=== PATIENT | female | born 1995 | race Caucasian/White ===

== ENCOUNTER 2023-08-10 16:04 | Emergency (ER) | payer OTHER ==
[~2023-08-10] VITALS: Ht 152.4 cm; Wt 46.7 kg
[2023-08-10 16:15] VITALS: BP_SYST 115; PULSE 110; RESP 17; TEMP 97.9; O2SAT 97
[2023-08-10 16:51] LABS: BASOPHILS # (AUTO) 0.1 K/uL (0.0-0.2); BASOPHILS % (AUTO) 0.6 % (0.0-2.0); EOSINOPHILS % (AUTO) 0.3 % (0.0-4.0); HEMOGLOBIN 14.5 g/dL (12.0-16.0); LYMPHOCYTES # (AUTO) 1.4 K/uL (1.0-5.5); LYMPHOCYTES % (AUTO) 14.9 % (20.5-51.5); MEAN CORPUSCULAR HEMOGLOBIN 33 pg (27-31); MEAN CORPUSCULAR HGB CONC 35 % (32-36); MEAN CORPUSCULAR VOLUME 94 fL (79.0-98.0); MONOCYTES # (AUTO) 0.5 K/uL (0.0-1.0); MONOCYTES % (AUTO) 5.5 % (1.7-9.3); NEUTROPHILS # (AUTO) 7.6 K/uL (1.8-7.7); NEUTROPHILS % (AUTO) 78.7 % (40.0-70.0); PLATELET COUNT (AUTO) 239 K/uL (130-430); RED BLOOD CELL COUNT(AUTO) 4.39 MIL/uL (4.2-6.2); RED CELL DISTRIBUTION WIDTH 13.8 % (9.0-15.0); WHITE BLOOD COUNT (AUTO) 9.6 K/uL (4.8-10.8)
[2023-08-10] MEDS: NACL 0.9% 1,000 ML IV ONE ×2 (17:02→18:19)
[2023-08-10] MEDS: ONDANSETRON HCL 4 MG/2 ML VIAL IVP ONE (17:03)
[2023-08-10 17:24] LABS: CALCIUM 9.3 mg/dL (8.4-11.0); CREATININE 0.64 mg/dL (0.55-1.30); POTASSIUM 3.9 mmol/L (3.5-5.1); TOTAL BILIRUBIN 0.3 mg/dL (0.0-1.0); TOTAL PROTEIN, SERUM 7.9 g/dL (6.4-8.3)
[2023-08-10 17:34] LABS: BILIRUBIN,DIRECT 0.1 mg/dL (0.0-0.3)
[2023-08-10] MEDS ORDERED: methylPREDNISolone SOD SUCC/PF 62.5 MG/ML VIAL IVP ONE (18:30)
[2023-08-10] MEDS: METOCLOPRAMIDE HCL 10 MG/2 ML VIAL IVP ONE (18:35)
[2023-08-10 19:15] VITALS: BP_SYST 115; PULSE 110; RESP 17; TEMP 97.9; O2SAT 97
== END 2023-08-10 19:07 | disposition home or self-care (01) ==
LOC: SED 16:04
DX: O21.0 Mild hyperemesis gravidarum (principal); Z3A.01 Less than 8 weeks gestation of pregnancy
CPT/HCPCS: 99284; 96374; 96361; 96375; 80076; 80048; 84702; 85025; 86901; 36415; J2765; J2405; J7030

== ENCOUNTER 2023-08-12 22:58 | Emergency (ER) | payer OTHER ==
[~2023-08-12] VITALS: Ht 152.4 cm; Wt 46.3 kg
[2023-08-12 23:10] VITALS: BP_SYST 121; PULSE 126; RESP 22; TEMP 98.8; O2SAT 95
[2023-08-13] MEDS: NACL 0.9% 1,000 ML IV ONE ×2 (00:04→01:47)
[2023-08-13 00:10] LABS: BASOPHILS % (AUTO) 0.4 % (0.0-2.0); EOSINOPHILS % (AUTO) 0.2 % (0.0-4.0); HEMATOCRIT 42.8 % (36-48); HEMOGLOBIN 14.6 g/dL (12.0-16.0); LYMPHOCYTES # (AUTO) 1.1 K/uL (1.0-5.5); LYMPHOCYTES % (AUTO) 10.8 % (20.5-51.5); MEAN CORPUSCULAR HEMOGLOBIN 32 pg (27-31); MEAN CORPUSCULAR HGB CONC 34 % (32-36); MEAN CORPUSCULAR VOLUME 94 fL (79.0-98.0); MONOCYTES # (AUTO) 0.6 K/uL (0.0-1.0); MONOCYTES % (AUTO) 6.4 % (1.7-9.3); NEUTROPHILS % (AUTO) 82.2 % (40.0-70.0); PLATELET COUNT (AUTO) 239 K/uL (130-430); RED BLOOD CELL COUNT(AUTO) 4.57 MIL/uL (4.2-6.2); WHITE BLOOD COUNT (AUTO) 9.7 K/uL (4.8-10.8)
[2023-08-13] MEDS: ONDANSETRON HCL 4 MG/2 ML VIAL IVP ONE ×2 (00:43→01:49)
[2023-08-13 00:57] LABS: ALBUMIN 4.4 g/dL (3.4-4.8); BILIRUBIN,DIRECT 0.1 mg/dL (0.0-0.3); CALCIUM 9.6 mg/dL (8.4-11.0); CREATININE 0.73 mg/dL (0.55-1.30); POTASSIUM 3.4 mmol/L (3.5-5.1); TOTAL BILIRUBIN 0.5 mg/dL (0.0-1.0); TOTAL PROTEIN, SERUM 8.4 g/dL (6.4-8.3)
[2023-08-13 01:22] LABS: BILIRUBIN,URINE 1+ (NEGATIVE); BLOOD, URINE NEGATIVE (NEGATIVE); CLARITY/URINE CLEAR (CLEAR); COLOR,URINE YELLOW (YELLOW); GLUCOSE,URINE NEGATIVE (NEGATIVE); KETONES,URINE 3+ (NEGATIVE); LEUKOCYTE ESTERASE ,URINE NEGATIVE (NEGATIVE); NITRITE, URINE NEGATIVE (NEGATIVE); PH,URINE 6.5 (5.0-8.0); PROTEIN URINE 1+ (NEGATIVE)
[2023-08-13 01:41] LABS: BACTERIA,URINE RARE /HPF (None Seen)
[2023-08-13] MEDS ORDERED: ONDA-8 TL (02:46)
[2023-08-13 02:57] VITALS: BP_SYST 108; PULSE 88; RESP 20; TEMP 98.3; O2SAT 97
== END 2023-08-13 02:57 | disposition home or self-care (01) ==
LOC: SED 22:58
DX: O21.0 Mild hyperemesis gravidarum (principal); Z3A.01 Less than 8 weeks gestation of pregnancy; Z79.899 Other long term (current) drug therapy
CPT/HCPCS: 99284; 80076; 80048; 81001; 83690; 85025; 36415; 96361; 96374; J2405; J7030; 81000; 81015

== ENCOUNTER 2023-09-12 09:24 | Emergency (ER) | payer OTHER ==
[~2023-09-12] VITALS: Ht 152.4 cm; Wt 45.8 kg
[~2023-09-12 09:24] MED LIST: ONDA-8 TL
[2023-09-12 09:38] VITALS: BP_SYST 114; PULSE 105; RESP 18; TEMP 98.3; O2SAT 99
[2023-09-12] MEDS: NACL 0.9% 1,000 ML IV ONE (10:11)
[2023-09-12] MEDS: METOCLOPRAMIDE HCL 10 MG/2 ML VIAL IVP ONE (10:11)
[2023-09-12 10:21] LABS: BASOPHILS % (AUTO) 0.4 % (0.0-2.0); EOSINOPHILS % (AUTO) 0.4 % (0.0-4.0); HEMATOCRIT 42.9 % (36-48); HEMOGLOBIN 14.6 g/dL (12.0-16.0); LYMPHOCYTES # (AUTO) 1.5 K/uL (1.0-5.5); LYMPHOCYTES % (AUTO) 14.1 % (20.5-51.5); MEAN CORPUSCULAR HEMOGLOBIN 32 pg (27-31); MEAN CORPUSCULAR HGB CONC 34 % (32-36); MEAN CORPUSCULAR VOLUME 94 fL (79.0-98.0); MONOCYTES # (AUTO) 0.6 K/uL (0.0-1.0); MONOCYTES % (AUTO) 5.8 % (1.7-9.3); NEUTROPHILS # (AUTO) 8.6 K/uL (1.8-7.7); NEUTROPHILS % (AUTO) 79.3 % (40.0-70.0); PLATELET COUNT (AUTO) 298 K/uL (130-430); RED BLOOD CELL COUNT(AUTO) 4.57 MIL/uL (4.2-6.2); RED CELL DISTRIBUTION WIDTH 13.8 % (9.0-15.0); WHITE BLOOD COUNT (AUTO) 10.8 K/uL (4.8-10.8)
[2023-09-12 11:03] LABS: ALANINE AMINOTRANSFERASE 24 U/L (12-78); ALBUMIN 3.9 g/dL (3.4-4.8); ANION GAP 10 (5-15); ASPARTATE AMINOTRANSFERASE 17 U/L (10-37); BILIRUBIN,DIRECT < 0.1 mg/dL (0.0-0.3); CALCIUM 9.6 mg/dL (8.4-11.0); CARBON DIOXIDE 26 mmol/L (23-29); CHLORIDE 100 mmol/L (98-107); CREATININE 0.72 mg/dL (0.55-1.30); GFR AFRICAN AMERICAN 124 mL/min (>90); GFR NON AFRICAN-AMERICAN 103 mL/min (>90); GLUCOSE 87 mg/dL (74-106); POTASSIUM 3.6 mmol/L (3.5-5.1); SODIUM SERUM 136 mmol/L (136-145); TOTAL BILIRUBIN 0.3 mg/dL (0.0-1.0); TOTAL PROTEIN, SERUM 8.4 g/dL (6.4-8.3); UREA NITROGEN, BLOOD 14 mg/dL (8-21)
[2023-09-12] MEDS ORDERED: METO-290 PO (11:48)
[2023-09-12 12:08] VITALS: BP_SYST 114; PULSE 105; RESP 18; TEMP 98.3; O2SAT 99
== END 2023-09-12 12:06 | disposition home or self-care (01) ==
LOC: SED 09:24
DX: O21.0 Mild hyperemesis gravidarum (principal); O99.281 Endocrine, nutritional and metabolic diseases complicating pregnancy, first trimester; Z3A.11 11 weeks gestation of pregnancy
CPT/HCPCS: 99283; 96374; 96361; 80076; 80048; 85025; 36415; 81025; J2765; J7030